=== PATIENT | female | born 1980 | race Caucasian/White ===

== ENCOUNTER → 2017-11-16 | Outpatient (CLI) | payer OTHER ==
[~2017-11-16] MED LIST: ACEDIPPM; ACET325 PO; ALBU90I INH; ALBU90OI; ALBU90OI INH; ALBU90OI61 INH; AMOCLA875 PO; AMOX500 PO; AZIT250 PO; Alprazolam0.5 MG PO; BCP'S; BUSP5 PO; CEPH500 PO; CIPR500 PO; CODGUAEL PO; CRUTCH USE; CRUTCH2 USE; CRUTCH3 USE; CRUTCH4 USE; CYCL10 PO; Clonazepam0.5 MG PO; DIPATR; DIPATR PO; DOXY100 PO; ESTR2; ESTRADIOL1 MG PO; FLUSAL2505 IH; GEODON; GUAPHELA PO; HYDACE10B PO; HYDACE5 PO; HYDGUAL120 PO; IBUP200 PO; IBUP600 PO; IBUP800; IBUP800 PO; LAVAP17G PO; LEVFLO500 PO; LITH300C; LITH300CA; LOPE2C PO; METCAR750 PO; MIRT30; NAPR500 PO; NAPR550 PO; Norflex100 MG; OLAN10; ONDA4ODT MM; OXYACE5T; OXYACE5T PO; PENVK500 PO; PRODEXEL PO; PROM25 PO; PROM6.25SY PO; Percocet 5-3251 EACH PO; Prilosec20 MG PO; RANI150; RXCODGUASY PO; RXCYCL10 PO; RXHYDACE PO; RXHYDGUAS PO; RXNAPNA550 PO; RXONDA4ODT MM; RXPROM25 PO; RXTRAM50 PO; SEROQUEL; SULTRIDS PO; SUMA25; TEMA15 PO; TOLTERODINE TART4 MG PO; TOPI100 PO; TRAM50 PO; TRIM250 PO; [UNRECOGNIZED DRUG - REMARK]
[2017-11-16 12:26] LABS: Influenza A Negative (NEGATIVE); Influenza B Negative (NEGATIVE)
== END ==
LOC: LAB EV 11:26
PROVIDERS: Emergency Medicine
DX: R06.2 Wheezing (principal)
CPT/HCPCS: 87804

== ENCOUNTER 2018-12-17 08:57 | Emergency (ER) | payer OTHER ==
[~2018-12-17] VITALS: Ht 177.8 cm; Wt 129.3 kg
[2018-12-17] MEDS ORDERED: ESTR2 PO (09:28)
[2018-12-17] MEDS ORDERED: CLON1 PO (09:28)
[2018-12-17] MEDS ORDERED: TOPI100 PO (09:28)
[2018-12-17] MEDS ORDERED: Norflex100 MG (09:28)
[2018-12-17] MEDS ORDERED: TOLT2ER PO (09:29)
[2018-12-17] MEDS ORDERED: PRED20 PO (10:17)
[2018-12-17] MEDS ORDERED: BENZ100A PO (10:17)
[2018-12-17] MEDS ORDERED: Cheratussin AC118 ML PO (10:17)
== END 2018-12-17 10:51 | disposition home or self-care (01) ==
LOC: ER 08:57
DX: R05 Cough (principal); R11.2 Nausea with vomiting, unspecified; Z88.8 Allergy status to other drugs, medicaments and biological substances; Z87.891 Personal history of nicotine dependence
CPT/HCPCS: 71046; 94640; 99283-25; J7512

== ENCOUNTER → 2019-10-28 | Outpatient (CLI) | payer OTHER ==
[~2019-10-28] MED LIST changes: +BENZ100A PO; +CLON1 PO; +Cheratussin AC118 ML PO; +ESTR2 PO; +PRED20 PO; +TOLT2ER PO
== END ==
LOC: LAB SHORT 11:35 → LAB EV 11:35
DX: R05 Cough (principal)
CPT/HCPCS: 87798

== ENCOUNTER → 2020-02-15 | Outpatient (CLI) | payer OTHER | END | disposition home or self-care (01) | LOC: LAB 12:00 → LAB SHORT 12:00 | DX: M54.5 Low back pain (principal) | CPT/HCPCS: 87086 ==

== ENCOUNTER 2020-11-22 07:39 | Day surgery (SDC) | payer OTHER ==
[~2020-11-22] VITALS: Ht 177.8 cm; Wt 136.8 kg
[~2020-11-22 07:39] MED LIST changes: +ALPR.5 PO; +CITA20 PO; +Norflex100 MG PO; +PRAZ2 PO
--- NOTE | 2020-11-22 09:17 | NUR ---
Ambulatory in Day Surgery History, Chart, Medications and Allergies reviewed before start of procedure. Lungs clear T/O to Auscultation. Pre-Op teaching done. Pt verbalizes understanding.
--- NOTE | 2020-11-22 10:39 | NUR ---
11/22/20 1039 Raleigh Barbosa BILATERAL ANNE BLOCKES DONE AFTER INDUCTION PER DR. BROWN.
--- NOTE | 2020-11-22 16:43 | NUR ---
SHIFT SUMMARY PT A&OX4, VSS, S/P HERNIA REPAIR, RUBENS CDI, ABD BINDER ON. PAIN TREATED PER ENAR. NICOTINE PATCH RIGHT SHOULDER. IVF @ 75 MLS/HR; ABX Q8. QUYNH PO, DENIES N&V. AMB SBA TO BRP. VOIDING WELL. WILL REPORT TO ONCOMING NOC PADMAJA.
--- NOTE | 2020-11-23 04:05 | NUR ---
SHIFT SUMMARY: POD 1 HERNIA REPAIR PATIENT IS ALERT AND ORIENTED X4 WHILE AWAKE. SHE HAS BEEN SLEEPING MAJORITY OF THE SHIFT. VS ARE WNL AND IS ON RA. PAIN IS CONTROLLED WITH TORADOL, PERCOCET, AND FENTANYL. SHE IS A SBA TO BATHROOM WITH FWW AND GAIT BELT. RUBENS DRESSING DOWN MIDLINE HAS SMALL DRIED BLOOD SPOTS BUT IS OTHERWISE INTACT AND COMPRESSED. SHE IS VOIDING, HAD A BM, AND TOLERATING PO INTAKE. SHE CALLS APPROPRIATELY. SHE IS CURRENTLY LAYING IN BED WITH EYES CLOSED WITH EVEN/EQUAL RESPIRATIONS. CALL LIGHT WITHIN REACH. THE PLAN IS TO POSSIBLY DISCHARGE HOME LATER TODAY IF APPROPRIATE.
[2020-11-23] MEDS ORDERED: OXYACE7.5T PO (09:45)
[2020-11-23] MEDS ORDERED: ONDA4ODT MM (09:45)
--- NOTE | 2020-11-23 11:02 | NUR ---
DISCHARGE SUMMARY PT A/O X4; PLEASANT AND COOPERATIVE WITH CARE. SLIGHTLY ANXIOUS BUT DOES NOT REPORT NEEDING ANYTHING FOR HER ANXIETY. EXPERIENCING PAIN IN HER ABD AND INCISION SITE AND MEDICATED X2 PER EMR ORDERS. RUBENS DRESSING CHANGED. A SMALL AMOUNT OF FRESH BLOOD NOTED ON THE DRESSING WHEN CHANGING. WENT OVER DISCHARGE INSTRUCTIONS WITH PATIENT AND SHE EXPRESSED UNDERSTANDING. ABD BINDER IN PLACE AT DISCHARGE. PT WENT HOME WITH SON.
== END 2020-11-23 10:58 | disposition home or self-care (01) ==
LOC: ORSCMMR 07:39 → ORD 09:30 → ORSCMMR 09:30 → SURS 13:02 → ORSCMMR 11-23 10:58
PROVIDERS: Surgery
PROC: 0WUF0JZ Supplement Abdominal Wall with Synthetic Substitute, Open Approach (ICD-10-PCS; principal; 2020-11-22 09:30)
DX: K43.2 Incisional hernia without obstruction or gangrene (principal); J44.9 Chronic obstructive pulmonary disease, unspecified; F17.210 Nicotine dependence, cigarettes, uncomplicated; K21.9 Gastro-esophageal reflux disease without esophagitis; E66.01 Morbid (severe) obesity due to excess calories; Z68.41 Body mass index [BMI] 40.0-44.9, adult; F31.9 Bipolar disorder, unspecified; Z79.899 Other long term (current) drug therapy
CPT/HCPCS: A9270; C1781; J0690; J1100; J1885; J2250; J2405; J2704; J3010; J7120

== ENCOUNTER 2020-12-05 18:48 | Emergency (ER) | payer OTHER ==
[~2020-12-05] VITALS: Ht 177.8 cm; Wt 136.1 kg
[~2020-12-05 18:48] MED LIST changes: +OXYACE7.5T PO
[2020-12-05 19:29] LABS: BASOPHILS ABSOLUTE AUTO 0.04 K/mm3 (0.00-0.23); BASOPHILS PERCENT AUTO 1 % (0-2); EOSINOPHILS ABSOLUTE AUTO 0.26 K/mm3 (0.00-0.68); EOSINOPHILS PERCENT AUTO 3 % (0-6); Hemoglobin 12.7 g/dL (11.5-16.0); IMMATURE GRAN ABSOLUTE AUTO 0.03 K/mm3 (0.00-0.10); IMMATURE GRAN PERCENT AUTO 0 % (0-1); LYMPHOCYTES ABSOLUTE AUTO 2.02 K/mm3 (0.84-5.20); LYMPHOCYTES PERCENT AUTO 25 % (21-46); MONOCYTES ABSOLUTE AUTO 0.66 K/mm3 (0.16-1.47); MONOCYTES PERCENT AUTO 8 % (4-13); Mean Corpuscular HGB 30.2 pg (26.0-34.0); Mean Corpuscular HGB Conc 33.4 g/dL (31.5-36.5); Mean Corpuscular Volume 91 fL (80-100); Mean Platelet Volume 8.8 fL (9.1-12.4); NEUTROPHILS ABSOLUTE AUTO 5.08 K/mm3 (1.96-9.15); NEUTROPHILS PERCENT AUTO 63 % (41-73); Platelet Count 263 K/mm3 (150-400); RDW Coefficient Variation 11.8 % (11.7-14.2); RDW Standard Deviation 38.9 fL (35.1-46.3); White Blood Cell Count 8.09 K/mm3 (4.00-11.30)
[2020-12-05 20:04] LABS: Alanine Aminotransfer (ALT/SGP 21 U/L (12-78); Albumin, Blood 3.7 g/dL (3.4-5.0); Alk Phos 88 U/L (50-136); Anion Gap 6 mmol/L (6-16); Aspartate Aminotrans (AST/SGOT 17 U/L (12-37); Bilirubin, Total 0.4 mg/dL (0.1-1.0); Blood Urea Nitrogen 19 mg/dL (8-24); Bun/Creatinine Ratio 25.5 (12.0-20.0); CO2, Blood 27 mmol/L (21-32); Calcium, Blood 9.4 mg/dL (8.5-10.1); Chloride, Blood 106 mmol/L (98-108); Creatinine, Blood 0.74 mg/dL (0.40-1.00); Globulin, Blood 3.7 g/dL (2.2-4.0); Glomerular Filtration Rate >60 (60-); Glucose, Blood 124 mg/dL (70-99); Potassium, Blood 3.9 mmol/L (3.5-5.5); Sodium, Blood 139 mmol/L (136-145); Total Protein, Blood 7.4 g/dL (6.4-8.2)
[2020-12-05] MEDS ORDERED: CEPH500 PO (23:10)
== END 2020-12-05 23:46 | disposition home or self-care (01) ==
LOC: ER 18:48
PROVIDERS: Emergency Medicine
DX: L03.311 Cellulitis of abdominal wall (principal); F17.200 Nicotine dependence, unspecified, uncomplicated; Z88.8 Allergy status to other drugs, medicaments and biological substances; Z79.899 Other long term (current) drug therapy
CPT/HCPCS: 36415; 74177; 80053; 83690; 85025; 96374; 99284-25; A9270; J1885; Q9967

== ENCOUNTER 2020-12-19 17:26 | Emergency (ER) | payer OTHER ==
[~2020-12-19] VITALS: Ht 177.8 cm; Wt 136.1 kg
[2020-12-19 18:06] LABS: Source, Urine Clean Catch
[2020-12-19 18:20] LABS: BASOPHILS ABSOLUTE AUTO 0.03 K/mm3 (0.00-0.23); BASOPHILS PERCENT AUTO 0 % (0-2); EOSINOPHILS ABSOLUTE AUTO 0.25 K/mm3 (0.00-0.68); EOSINOPHILS PERCENT AUTO 4 % (0-6); Hematocrit 35.8 % (33.0-51.0); IMMATURE GRAN ABSOLUTE AUTO 0.02 K/mm3 (0.00-0.10); IMMATURE GRAN PERCENT AUTO 0 % (0-1); LYMPHOCYTES ABSOLUTE AUTO 1.85 K/mm3 (0.84-5.20); LYMPHOCYTES PERCENT AUTO 26 % (21-46); MONOCYTES ABSOLUTE AUTO 0.93 K/mm3 (0.16-1.47); MONOCYTES PERCENT AUTO 13 % (4-13); Mean Corpuscular HGB 30.4 pg (26.0-34.0); Mean Corpuscular HGB Conc 33.5 g/dL (31.5-36.5); Mean Corpuscular Volume 91 fL (80-100); Mean Platelet Volume 8.9 fL (9.1-12.4); NEUTROPHILS ABSOLUTE AUTO 3.99 K/mm3 (1.96-9.15); NEUTROPHILS PERCENT AUTO 56 % (41-73); Platelet Count 254 K/mm3 (150-400); RDW Coefficient Variation 11.7 % (11.7-14.2); RDW Standard Deviation 38.8 fL (35.1-46.3); Red Blood Cell Count 3.95 M/mm3 (3.80-5.20); White Blood Cell Count 7.07 K/mm3 (4.00-11.30)
[2020-12-19 18:27] LABS: Alanine Aminotransfer (ALT/SGP 18 U/L (12-78); Albumin, Blood 3.3 g/dL (3.4-5.0); Albumin/Globulin Ratio 0.9 (0.8-1.8); Alk Phos 81 U/L (50-136); Anion Gap 3 mmol/L (6-16); Aspartate Aminotrans (AST/SGOT 16 U/L (12-37); Bilirubin, Total 0.4 mg/dL (0.1-1.0); Blood Urea Nitrogen 13 mg/dL (8-24); Bun/Creatinine Ratio 17.3 (12.0-20.0); CO2, Blood 27 mmol/L (21-32); Calcium, Blood 9.1 mg/dL (8.5-10.1); Chloride, Blood 109 mmol/L (98-108); Creatinine, Blood 0.75 mg/dL (0.40-1.00); Globulin, Blood 3.6 g/dL (2.2-4.0); Glomerular Filtration Rate >60 (60-); Glucose, Blood 101 mg/dL (70-99); Potassium, Blood 4.3 mmol/L (3.5-5.5); Sodium, Blood 139 mmol/L (136-145); Total Protein, Blood 6.9 g/dL (6.4-8.2)
[2020-12-19 18:35] LABS: Appearance, Urine Hazy (Clear); Bilirubin, Urine Neg (Neg); Blood, Urine Neg (Neg); Color, Urine Yellow (P-Yellow); Glucose Qualitative, Urine Neg (Neg); Ketones, Urine 1+ (Neg); Leukocyte Esterase, Urine Neg (Neg); Nitrite, Urine Neg (Neg); Protein, Urine Neg (Neg); Urobilinogen, Urine NORM (Normal)
[2020-12-19 19:03] LABS: Bacteria Few /hpf; Red Blood Cells, Urine 0-2 /hpf (0-2); Squamous Epithelial Cells Few /hpf (Few); White Blood Cells, Urine 0-2 /hpf (0-5)
[2020-12-19 19:04] LABS: Amorphous Heavy (0-Heavy)
[2020-12-19] MEDS ORDERED: Norco 5-325 Ta1 EACH PO (19:32)
== END 2020-12-19 19:42 | disposition home or self-care (01) ==
LOC: ER 17:26
PROVIDERS: Physician Assistant
DX: R10.9 Unspecified abdominal pain (principal); Z48.01 Encounter for change or removal of surgical wound dressing
CPT/HCPCS: 36415; 74177; 80053; 81001; 83690; 85025; 99283-25; Q9967

== ENCOUNTER 2021-01-23 10:16 | Emergency (ER) | payer OTHER ==
[~2021-01-23] VITALS: Ht 177.8 cm; Wt 136.1 kg
[~2021-01-23 10:16] MED LIST changes: +Norco 5-325 Ta1 EACH PO
[2021-01-23] MEDS ORDERED: Phentermine HCl15 MG (11:18)
[2021-01-23] MEDS ORDERED: DIVA125EC (11:18)
[2021-01-23] MEDS ORDERED: PRAMIPEXOLE0.125 M1 PO (11:20)
[2021-01-23] MEDS ORDERED: Norflex100 MG (11:20)
[2021-01-23 11:41] LABS: BASOPHILS ABSOLUTE AUTO 0.04 K/mm3 (0.00-0.23); BASOPHILS PERCENT AUTO 1 % (0-2); EOSINOPHILS PERCENT AUTO 1 % (0-6); Hematocrit 39.3 % (33.0-51.0); Hemoglobin 13.1 g/dL (11.5-16.0); IMMATURE GRAN ABSOLUTE AUTO 0.02 K/mm3 (0.00-0.10); IMMATURE GRAN PERCENT AUTO 0 % (0-1); LYMPHOCYTES ABSOLUTE AUTO 1.84 K/mm3 (0.84-5.20); LYMPHOCYTES PERCENT AUTO 25 % (21-46); MONOCYTES ABSOLUTE AUTO 0.72 K/mm3 (0.16-1.47); MONOCYTES PERCENT AUTO 10 % (4-13); Mean Corpuscular HGB 29.8 pg (26.0-34.0); Mean Corpuscular HGB Conc 33.3 g/dL (31.5-36.5); Mean Corpuscular Volume 90 fL (80-100); Mean Platelet Volume 8.6 fL (9.1-12.4); NEUTROPHILS ABSOLUTE AUTO 4.79 K/mm3 (1.96-9.15); NEUTROPHILS PERCENT AUTO 64 % (41-73); Platelet Count 256 K/mm3 (150-400); RDW Coefficient Variation 12.1 % (11.7-14.2); RDW Standard Deviation 39.5 fL (35.1-46.3); Red Blood Cell Count 4.39 M/mm3 (3.80-5.20); White Blood Cell Count 7.51 K/mm3 (4.00-11.30)
[2021-01-23 11:59] LABS: Alanine Aminotransfer (ALT/SGP 22 U/L (12-78); Albumin, Blood 3.7 g/dL (3.4-5.0); Albumin/Globulin Ratio 0.9 (0.8-1.8); Alk Phos 94 U/L (50-136); Anion Gap 6 mmol/L (6-16); Aspartate Aminotrans (AST/SGOT 15 U/L (12-37); Bilirubin, Total 0.4 mg/dL (0.1-1.0); Blood Urea Nitrogen 13 mg/dL (8-24); Bun/Creatinine Ratio 16.5 (12.0-20.0); CO2, Blood 27 mmol/L (21-32); Calcium, Blood 9.2 mg/dL (8.5-10.1); Chloride, Blood 103 mmol/L (98-108); Creatinine, Blood 0.79 mg/dL (0.40-1.00); Globulin, Blood 4.1 g/dL (2.2-4.0); Glomerular Filtration Rate >60 (60-); Glucose, Blood 86 mg/dL (70-99); Potassium, Blood 3.8 mmol/L (3.5-5.5); Sodium, Blood 136 mmol/L (136-145); Total Protein, Blood 7.8 g/dL (6.4-8.2)
[2021-01-23] MEDS ORDERED: CEPHALEXIN500 M2 PO (13:18)
== END 2021-01-23 13:35 | disposition home or self-care (01) ==
LOC: ER 10:16
PROVIDERS: Emergency Medicine
DX: L03.311 Cellulitis of abdominal wall (principal); F17.210 Nicotine dependence, cigarettes, uncomplicated; Z88.8 Allergy status to other drugs, medicaments and biological substances; Z79.899 Other long term (current) drug therapy
CPT/HCPCS: 36415; 80053; 83690; 85025; 99282; A9270

== ENCOUNTER 2021-06-21 10:18 | Day surgery (SDC) | payer OTHER ==
[~2021-06-21] VITALS: Ht 177.8 cm; Wt 138.1 kg
[~2021-06-21 10:18] MED LIST changes: +CEPHALEXIN500 M2 PO; +DIVA125EC; +PRAMIPEXOLE0.125 M1 PO; +Phentermine HCl15 MG
--- NOTE | 2021-06-21 11:03 | NUR ---
06/21/21 Manuela3 Dina Jay 1 try right hand blew missed the first one same hand
--- NOTE | 2021-06-21 16:07 | NUR ---
06/21/21 1607 Gregoria Rivas LATE ENTRY---THIS PATIENT WAS VERY DIFFICULT TO SEDATE AND REQUIRED CONTINUED BOLUS OF PROPOFOL TO MAINTAIN SEDATION AND THIS WAS APPROVED THROUGHOUT THIS PROCEDURE BY DR NOLAN. THIS PATIENT SHOULD HAVE MAC SEDATION FOR ANY FURTHER ENDOSCOPIC PROCEDURES
== END 2021-06-21 13:00 | disposition home or self-care (01) ==
LOC: ORSCSDS 10:18
PROVIDERS: Internal Medicine Gastroenterology
PROC: 0DBE8ZX Excision of Large Intestine, Via Natural or Artificial Opening Endoscopic, Diagnostic (ICD-10-PCS; principal; 2021-06-21 12:00)
PROC: 0DB98ZX Excision of Duodenum, Via Natural or Artificial Opening Endoscopic, Diagnostic (ICD-10-PCS; principal; 2021-06-21 12:00)
PROC: 0DB78ZX Excision of Stomach, Pylorus, Via Natural or Artificial Opening Endoscopic, Diagnostic (ICD-10-PCS; principal; 2021-06-21 12:00)
DX: R19.7 Diarrhea, unspecified (principal); R11.2 Nausea with vomiting, unspecified; K29.70 Gastritis, unspecified, without bleeding; K44.9 Diaphragmatic hernia without obstruction or gangrene; B19.20 Unspecified viral hepatitis C without hepatic coma; F17.210 Nicotine dependence, cigarettes, uncomplicated; J45.909 Unspecified asthma, uncomplicated; K76.0 Fatty (change of) liver, not elsewhere classified; Z79.899 Other long term (current) drug therapy
CPT/HCPCS: 88305; 88342; J2250; J2704; J7120

== ENCOUNTER 2021-10-26 00:54 | Emergency (ER) | payer OTHER ==
[~2021-10-26] VITALS: Ht 162.6 cm; Wt 113.4 kg
[2021-10-26 01:18] LABS: BASOPHILS ABSOLUTE AUTO 0.03 K/mm3 (0.00-0.23); BASOPHILS PERCENT AUTO 0 % (0-2); EOSINOPHILS ABSOLUTE AUTO 0.12 K/mm3 (0.00-0.68); EOSINOPHILS PERCENT AUTO 2 % (0-6); Hematocrit 41.4 % (33.0-51.0); Hemoglobin 13.9 g/dL (11.5-16.0); IMMATURE GRAN ABSOLUTE AUTO 0.03 K/mm3 (0.00-0.10); IMMATURE GRAN PERCENT AUTO 0 % (0-1); LYMPHOCYTES ABSOLUTE AUTO 2.15 K/mm3 (0.84-5.20); LYMPHOCYTES PERCENT AUTO 32 % (21-46); MONOCYTES ABSOLUTE AUTO 0.53 K/mm3 (0.16-1.47); MONOCYTES PERCENT AUTO 8 % (4-13); Mean Corpuscular HGB 30.2 pg (26.0-34.0); Mean Corpuscular HGB Conc 33.6 g/dL (31.5-36.5); Mean Corpuscular Volume 90 fL (80-100); Mean Platelet Volume 8.9 fL (9.1-12.4); NEUTROPHILS ABSOLUTE AUTO 3.85 K/mm3 (1.96-9.15); NEUTROPHILS PERCENT AUTO 58 % (41-73); Platelet Count 252 K/mm3 (150-400); RDW Coefficient Variation 11.9 % (11.7-14.2); RDW Standard Deviation 39.1 fL (35.1-46.3); Red Blood Cell Count 4.61 M/mm3 (3.80-5.20); White Blood Cell Count 6.71 K/mm3 (4.00-11.30)
[2021-10-26 01:31] LABS: Alanine Aminotransfer (ALT/SGP 30 U/L (12-78); Albumin, Blood 3.9 g/dL (3.4-5.0); Albumin/Globulin Ratio 1.1 (0.8-1.8); Alk Phos 89 U/L (50-136); Anion Gap 8 mmol/L (6-16); Aspartate Aminotrans (AST/SGOT 19 U/L (12-37); Bilirubin, Total 0.3 mg/dL (0.1-1.0); Blood Urea Nitrogen 11 mg/dL (8-24); Bun/Creatinine Ratio 16.9 (12.0-20.0); CO2, Blood 28 mmol/L (21-32); Calcium, Blood 8.9 mg/dL (8.5-10.1); Chloride, Blood 106 mmol/L (98-108); Creatinine, Blood 0.65 mg/dL (0.40-1.00); Ethanol (Alcohol), Blood, Med 185 mg/dL; Globulin, Blood 3.7 g/dL (2.2-4.0); Glomerular Filtration Rate >60 (60-); Glucose, Blood 138 mg/dL (70-99); Potassium, Blood 3.5 mmol/L (3.5-5.5); Sodium, Blood 142 mmol/L (136-145); Total Protein, Blood 7.6 g/dL (6.4-8.2)
[2021-10-26 03:08] LABS: U Amphetamine Screen Not Detected; U Barbituate Screen Not Detected; U Benzodiazapine Screen Not Detected; U Buprenorphine Screen Not Detected; U Cannabinoids Screen Not Detected; U Cocaine Screen Not Detected; U Methadone Screen Not Detected; U Methamphetamine Screen Not Detected; U Opiates Screen Not Detected; U Oxycodone Screen Not Detected; U Phencyclidine Screen Not Detected; U Propoxyphene Screen Not Detected
[2021-10-26 06:12] LABS: Influenza A, PCR NEGATIVE (NEGATIVE); Influenza B, PCR NEGATIVE (NEGATIVE); Resp Syncytial Virus, PCR NEGATIVE (NEGATIVE); SARS-Cov-2 (COVID-19) PCR, MMC NEGATIVE (NEGATIVE)
== END 2021-10-26 10:15 | disposition other institution (70) ==
LOC: ER 00:54 → PCU 06:42
PROVIDERS: Student in an Organized Health Care Education/Training Program
DX: F10.129 Alcohol abuse with intoxication, unspecified (principal); R51.9 Headache, unspecified; H57.11 Ocular pain, right eye; F17.210 Nicotine dependence, cigarettes, uncomplicated; Y90.9 Presence of alcohol in blood, level not specified; Z20.822 Contact with and (suspected) exposure to COVID-19; Z79.899 Other long term (current) drug therapy; Z88.8 Allergy status to other drugs, medicaments and biological substances
CPT/HCPCS: 0241U; 70450; 70496; 70498; 71045; 80053; 84145; 85025; 85379; 85651; 93005; 93010; 96365-59; 96366-59; 96375-59; 99285-25; A9270; G0480; J0456; J0696; J1790; J1885; J7050; J7120; P9612; Q9967

== ENCOUNTER 2022-08-02 08:03 | Emergency (ER) | payer OTHER ==
[~2022-08-02] VITALS: Ht 177.8 cm; Wt 124.7 kg
[~2022-08-02 08:03] MED LIST changes: +ALPRAZOLAM0.5 M1 PO; +CITALOPRAM HBR20 M8 PO; +CLONAZEPAM1 MG PO
[2022-08-02] MEDS ORDERED: Robaxin750 MG PO (09:42)
[2022-08-02] MEDS ORDERED: LIDO700A20 TOP (09:42)
[2022-08-02] MEDS ORDERED: IBUP800 PO (09:42)
== END 2022-08-02 09:52 | disposition home or self-care (01) ==
LOC: ER 08:03
DX: M54.9 Dorsalgia, unspecified (principal); W10.9XXA Fall (on) (from) unspecified stairs and steps, initial encounter; Z88.5 Allergy status to narcotic agent; Z79.899 Other long term (current) drug therapy; F17.210 Nicotine dependence, cigarettes, uncomplicated
CPT/HCPCS: 72100; A9270

== ENCOUNTER 2022-12-26 17:45 | Emergency (ER) | payer OTHER ==
[~2022-12-26] VITALS: Ht 177.8 cm; Wt 122.5 kg
[~2022-12-26 17:45] MED LIST changes: +LIDO700A20 TOP; +Robaxin750 MG PO
[2022-12-26 17:51] VITALS: BP 149/90
[2022-12-26 18:05] LABS: BASOPHILS ABSOLUTE AUTO 0.05 K/mm3 (0.00-0.23); BASOPHILS PERCENT AUTO 1 % (0-2); EOSINOPHILS ABSOLUTE AUTO 0.12 K/mm3 (0.00-0.68); EOSINOPHILS PERCENT AUTO 2 % (0-6); Hematocrit 40.4 % (33.0-51.0); Hemoglobin 13.6 g/dL (11.5-16.0); IMMATURE GRAN ABSOLUTE AUTO 0.02 K/mm3 (0.00-0.10); IMMATURE GRAN PERCENT AUTO 0 % (0-1); LYMPHOCYTES ABSOLUTE AUTO 2.47 K/mm3 (0.84-5.20); LYMPHOCYTES PERCENT AUTO 32 % (21-46); MONOCYTES ABSOLUTE AUTO 0.65 K/mm3 (0.16-1.47); MONOCYTES PERCENT AUTO 8 % (4-13); Mean Corpuscular HGB 28.2 pg (26.0-34.0); Mean Corpuscular HGB Conc 33.7 g/dL (31.5-36.5); Mean Corpuscular Volume 84 fL (80-100); Mean Platelet Volume 8.7 fL (9.1-12.4); NEUTROPHILS ABSOLUTE AUTO 4.44 K/mm3 (1.96-9.15); NEUTROPHILS PERCENT AUTO 57 % (41-73); Platelet Count 311 K/mm3 (150-400); RDW Coefficient Variation 13.2 % (11.7-14.2); RDW Standard Deviation 40.4 fL (35.1-46.3); Red Blood Cell Count 4.83 M/mm3 (3.80-5.20); White Blood Cell Count 7.75 K/mm3 (4.00-11.30)
[2022-12-26 18:30] LABS: Source, Urine Clean Catch
[2022-12-26 18:31] LABS: Albumin, Blood 3.8 g/dL (3.4-5.0); Bilirubin, Total 0.4 mg/dL (0.1-1.0); Bun/Creatinine Ratio 13.5 (12.0-20.0); Creatinine, Blood 0.74 mg/dL (0.40-1.00); Globulin, Blood 3.7 g/dL (2.2-4.0); Potassium, Blood 3.7 mmol/L (3.5-5.5); Total Protein, Blood 7.5 g/dL (6.4-8.2)
[2022-12-26 18:33] LABS: Appearance, Urine Clear (Clear); Bilirubin, Urine Neg (Neg); Blood, Urine Neg (Neg); Color, Urine Yellow (P-Yellow); Glucose Qualitative, Urine Neg (Neg); Ketones, Urine Neg (Neg); Leukocyte Esterase, Urine Neg (Neg); Nitrite, Urine Neg (Neg); Protein, Urine Neg (Neg); Specific Gravity, Urine 1.015 (1.003-1.022); Urobilinogen, Urine NORM (Normal)
== END 2022-12-26 19:01 | disposition left against medical advice (07) ==
LOC: ER 17:45
PROVIDERS: Physician Assistant
DX: Z53.21 Procedure and treatment not carried out due to patient leaving prior to being seen by health care provider (principal); F17.210 Nicotine dependence, cigarettes, uncomplicated
CPT/HCPCS: 36415; 74176; 80053; 81003; 83690; 85025

== ENCOUNTER 2023-02-08 13:59 | Emergency (ER) | payer OTHER ==
[~2023-02-08] VITALS: Ht 177.8 cm; Wt 122.5 kg
[2023-02-08 14:30] VITALS: BP 133/85
[2023-02-08 14:59] LABS: BASOPHILS ABSOLUTE AUTO 0.04 K/mm3 (0.00-0.23); BASOPHILS PERCENT AUTO 0 % (0-2); EOSINOPHILS ABSOLUTE AUTO 0.07 K/mm3 (0.00-0.68); EOSINOPHILS PERCENT AUTO 1 % (0-6); Hematocrit 39.1 % (33.0-51.0); Hemoglobin 13.3 g/dL (11.5-16.0); IMMATURE GRAN ABSOLUTE AUTO 0.04 K/mm3 (0.00-0.10); IMMATURE GRAN PERCENT AUTO 0 % (0-1); LYMPHOCYTES ABSOLUTE AUTO 1.13 K/mm3 (0.84-5.20); LYMPHOCYTES PERCENT AUTO 12 % (21-46); MONOCYTES ABSOLUTE AUTO 0.71 K/mm3 (0.16-1.47); MONOCYTES PERCENT AUTO 8 % (4-13); Mean Corpuscular HGB 28.7 pg (26.0-34.0); Mean Corpuscular Volume 84 fL (80-100); Mean Platelet Volume 9.1 fL (9.1-12.4); NEUTROPHILS ABSOLUTE AUTO 7.28 K/mm3 (1.96-9.15); NEUTROPHILS PERCENT AUTO 79 % (41-73); Platelet Count 251 K/mm3 (150-400); RDW Coefficient Variation 12.7 % (11.7-14.2); RDW Standard Deviation 38.7 fL (35.1-46.3); Red Blood Cell Count 4.64 M/mm3 (3.80-5.20); White Blood Cell Count 9.27 K/mm3 (4.00-11.30)
[2023-02-08 15:15] LABS: Albumin, Blood 3.6 g/dL (3.4-5.0); Bilirubin, Total 0.5 mg/dL (0.1-1.0); Bun/Creatinine Ratio 15.6 (12.0-20.0); Calcium, Blood 8.7 mg/dL (8.5-10.1); Creatinine, Blood 0.71 mg/dL (0.40-1.00); Globulin, Blood 3.7 g/dL (2.2-4.0); Potassium, Blood 4.1 mmol/L (3.5-5.5); Total Protein, Blood 7.3 g/dL (6.4-8.2)
== END 2023-02-08 16:16 | disposition left against medical advice (07) ==
LOC: ER 13:59
PROVIDERS: Physician Assistant
DX: R42 Dizziness and giddiness (principal); R10.9 Unspecified abdominal pain; R19.7 Diarrhea, unspecified; Z53.21 Procedure and treatment not carried out due to patient leaving prior to being seen by health care provider; B18.2 Chronic viral hepatitis C; F17.210 Nicotine dependence, cigarettes, uncomplicated; Z88.8 Allergy status to other drugs, medicaments and biological substances
CPT/HCPCS: 80053; 82947; 85025; 93005; 93010; 99282-25

== ENCOUNTER 2023-09-23 11:51 | Emergency (ER) | payer OTHER ==
[~2023-09-23] VITALS: Ht 177.8 cm; Wt 136.1 kg
[2023-09-23 13:03] LABS: BASOPHILS ABSOLUTE AUTO 0.04 K/mm3 (0.00-0.23); BASOPHILS PERCENT AUTO 0 % (0-2); EOSINOPHILS ABSOLUTE AUTO 0.11 K/mm3 (0.00-0.68); EOSINOPHILS PERCENT AUTO 1 % (0-6); Hematocrit 44.3 % (33.0-51.0); Hemoglobin 14.7 g/dL (11.5-16.0); IMMATURE GRAN ABSOLUTE AUTO 0.04 K/mm3 (0.00-0.10); IMMATURE GRAN PERCENT AUTO 0 % (0-1); LYMPHOCYTES ABSOLUTE AUTO 1.77 K/mm3 (0.84-5.20); LYMPHOCYTES PERCENT AUTO 18 % (21-46); MONOCYTES ABSOLUTE AUTO 0.68 K/mm3 (0.16-1.47); MONOCYTES PERCENT AUTO 7 % (4-13); Mean Corpuscular HGB 28.3 pg (26.0-34.0); Mean Corpuscular HGB Conc 33.2 g/dL (31.5-36.5); Mean Corpuscular Volume 85 fL (80-100); Mean Platelet Volume 8.9 fL (9.1-12.4); NEUTROPHILS ABSOLUTE AUTO 7.39 K/mm3 (1.96-9.15); NEUTROPHILS PERCENT AUTO 74 % (41-73); Platelet Count 340 K/mm3 (150-400); RDW Coefficient Variation 12.4 % (11.7-14.2); RDW Standard Deviation 38.6 fL (35.1-46.3); Red Blood Cell Count 5.19 M/mm3 (3.80-5.20); White Blood Cell Count 10.03 K/mm3 (4.00-11.30)
[2023-09-23 13:23] LABS: Albumin, Blood 3.9 g/dL (3.4-5.0); Albumin/Globulin Ratio 0.9 (0.8-1.8); Bilirubin, Total 0.4 mg/dL (0.1-1.0); Bun/Creatinine Ratio 15.4 (12.0-20.0); Calcium, Blood 9.3 mg/dL (8.5-10.1); Creatinine, Blood 0.85 mg/dL (0.40-1.00); Globulin, Blood 4.2 g/dL (2.2-4.0); Potassium, Blood 3.9 mmol/L (3.5-5.5); Total Protein, Blood 8.1 g/dL (6.4-8.2)
[2023-09-23] MEDS ORDERED: ACYC800 PO (15:07)
[2023-09-23] MEDS ORDERED: METPRE4DP PO (15:07)
[2023-09-23] MEDS ORDERED: OXYC5 PO (15:12)
[2023-09-23 15:28] VITALS: BP 114/65
== END 2023-09-23 15:30 | disposition home or self-care (01) ==
LOC: ER 11:51
PROVIDERS: Student in an Organized Health Care Education/Training Program
DX: B02.22 Postherpetic trigeminal neuralgia (principal); Z87.891 Personal history of nicotine dependence
CPT/HCPCS: 70450; 80053; 85025; 99284-25; A9270; J7512

== ENCOUNTER 2023-12-30 13:28 | Emergency (ER) | payer OTHER ==
[~2023-12-30] VITALS: Ht 177.8 cm; Wt 136.1 kg
[~2023-12-30 13:28] MED LIST changes: +ACYC800 PO; +METPRE4DP PO; +OXYC5 PO
[2023-12-30 13:51] VITALS: BP 141/95
[2023-12-30 14:19] LABS: BASOPHILS ABSOLUTE AUTO 0.04 K/mm3 (0.00-0.23); BASOPHILS PERCENT AUTO 1 % (0-2); EOSINOPHILS PERCENT AUTO 1 % (0-6); Hematocrit 40.1 % (33.0-51.0); Hemoglobin 13.3 g/dL (11.5-16.0); IMMATURE GRAN ABSOLUTE AUTO 0.03 K/mm3 (0.00-0.10); IMMATURE GRAN PERCENT AUTO 0 % (0-1); LYMPHOCYTES ABSOLUTE AUTO 1.54 K/mm3 (0.84-5.20); LYMPHOCYTES PERCENT AUTO 21 % (21-46); MONOCYTES ABSOLUTE AUTO 0.59 K/mm3 (0.16-1.47); MONOCYTES PERCENT AUTO 8 % (4-13); Mean Corpuscular HGB Conc 33.2 g/dL (31.5-36.5); Mean Corpuscular Volume 87 fL (80-100); Mean Platelet Volume 9.1 fL (9.1-12.4); NEUTROPHILS ABSOLUTE AUTO 4.99 K/mm3 (1.96-9.15); NEUTROPHILS PERCENT AUTO 69 % (41-73); Platelet Count 257 K/mm3 (150-400); RDW Standard Deviation 41.4 fL (35.1-46.3); Red Blood Cell Count 4.59 M/mm3 (3.80-5.20); White Blood Cell Count 7.29 K/mm3 (4.00-11.30)
[2023-12-30 14:31] LABS: Source, Urine Clean Catch
[2023-12-30 14:37] LABS: Appearance, Urine Hazy (Clear); Bilirubin, Urine Neg (Neg); Blood, Urine 1+ (Neg); Glucose Qualitative, Urine Neg (Neg); Ketones, Urine Neg (Neg); Leukocyte Esterase, Urine 2+ (Neg); Nitrite, Urine Neg (Neg); Protein, Urine Neg (Neg); Urobilinogen, Urine NORM (Normal)
[2023-12-30 14:48] LABS: Color, Urine Pale Yellow (P-Yellow)
[2023-12-30 14:50] LABS: Bacteria Many /hpf; Squamous Epithelial Cells Many /hpf (Few)
[2023-12-30 14:51] LABS: Transitional Epithelial Cells Rare /hpf (0-Rare)
[2023-12-30 15:13] LABS: Albumin, Blood 3.7 g/dL (3.4-5.0); Bilirubin, Total 0.3 mg/dL (0.1-1.0); Bun/Creatinine Ratio 17.1 (12.0-20.0); Calcium, Blood 9.1 mg/dL (8.5-10.1); Creatinine, Blood 0.64 mg/dL (0.40-1.00); Globulin, Blood 3.6 g/dL (2.2-4.0); Potassium, Blood 4.3 mmol/L (3.5-5.5); Total Protein, Blood 7.3 g/dL (6.4-8.2)
[2023-12-30] MEDS ORDERED: Cephalexin Monohydrate 500 MG Cap PO ONE (16:30)
[2023-12-30] MEDS ORDERED: CEPH500 PO (16:33)
== END 2023-12-30 16:56 | disposition home or self-care (01) ==
LOC: ER 13:28
PROVIDERS: Physician Assistant
DX: N39.0 Urinary tract infection, site not specified (principal); Z88.8 Allergy status to other drugs, medicaments and biological substances; Z79.899 Other long term (current) drug therapy; F17.210 Nicotine dependence, cigarettes, uncomplicated
CPT/HCPCS: 51702; 51798; 80053; 81001; 83690; 85025; 87086; 99284; A9270

== ENCOUNTER 2024-08-21 11:44 | Emergency (ER) | payer OTHER ==
[~2024-08-21] VITALS: Ht 177.8 cm; Wt 136.1 kg
[2024-08-21 12:05] VITALS: BP 159/97
[2024-08-21] MEDS ORDERED: Ketorolac Tromethamine 15mg Vial IM ONE (12:45)
[2024-08-21] MEDS ORDERED: Methocarbamol 500 MG Tab PO ONE (12:45)
[2024-08-21] MEDS ORDERED: Robaxin750 MG PO (12:59)
== END 2024-08-21 13:04 | disposition home or self-care (01) ==
LOC: ER 11:44
DX: M54.50 Low back pain, unspecified (principal); F17.210 Nicotine dependence, cigarettes, uncomplicated; Z79.899 Other long term (current) drug therapy
CPT/HCPCS: 96372; 99283-25; A9270; J1885

== ENCOUNTER 2024-11-25 08:31 | Emergency (ER) | payer OTHER ==
[~2024-11-25] VITALS: Ht 177.8 cm; Wt 142.9 kg
[2024-11-25 09:00] VITALS: BP 170/116
[2024-11-25] MEDS ORDERED: Ketorolac Tromethamine 30mg Vial IM ONE (09:10)
[2024-11-25] MEDS ORDERED: Triamcinolone Inj Susp 40 MG / ML 1ML Vial INTERA ONE (10:25)
[2024-11-25] MEDS ORDERED: IBUP800 PO (11:16)
== END 2024-11-25 11:33 | disposition home or self-care (01) ==
LOC: ER 08:31
DX: M75.42 Impingement syndrome of left shoulder (principal); Z79.899 Other long term (current) drug therapy; Z87.891 Personal history of nicotine dependence
CPT/HCPCS: 20610; 73030; 93005; 93010; 96372-59; 99283-25; J1885; J3301

== ENCOUNTER 2024-12-05 19:49 | Inpatient (IN) | payer OTHER ==
[~2024-12-05] VITALS: Ht 177.8 cm; Wt 147.6 kg
[2024-12-05] MEDS ORDERED: Benzonatate 100 MG Cap PO ONE (20:40)
[2024-12-05] MEDS ORDERED: PredniSONE 20 MG Tab PO ONE (20:40)
[2024-12-05] MEDS ORDERED: Albuterol 2.5 MG/3 ML VIAL INH SCH (20:40)
[2024-12-05 20:46] LABS: Influenza A, PCR NEGATIVE (NEGATIVE); Influenza B, PCR NEGATIVE (NEGATIVE); Resp Syncytial Virus, PCR NEGATIVE (NEGATIVE); SARS-Cov-2 (COVID-19) PCR, MMC NEGATIVE (NEGATIVE)
[2024-12-05] MEDS ORDERED: Acetaminophen 500 MG Tab PO ONE (21:45)
[2024-12-05] MEDS ORDERED: Ibuprofen 600 MG Tab PO ONE (21:45)
[2024-12-05] MEDS ORDERED: Doxycycline Hyclate 100 MG TAB PO ONE (21:45)
[2024-12-05] MEDS ORDERED: Amoxicillin/Clavulanate K 875 MG Tab PO ONE (21:45)
[2024-12-05] MEDS ORDERED: CefTRIAXone Sodium 1,000 MG in NS 100 ML IV ONE (21:50)
[2024-12-05] MEDS ORDERED: Doxycycline Hyclate 100 MG in Dextrose 5% 250 ML IV ONE (21:50)
[2024-12-05 22:30] LABS: Bun/Creatinine Ratio 18.7 (12.0-20.0); Calcium, Blood 8.6 mg/dL (8.5-10.1); Creatinine, Blood 0.7 mg/dL (0.40-1.00); Potassium, Blood 3.2 mmol/L (3.5-5.5)
[2024-12-05 22:33] LABS: BASOPHILS ABSOLUTE AUTO 0.03 K/mm3 (0.00-0.23); BASOPHILS PERCENT AUTO 0 % (0-2); EOSINOPHILS ABSOLUTE AUTO 0.03 K/mm3 (0.00-0.68); EOSINOPHILS PERCENT AUTO 0 % (0-6); Hematocrit 40.7 % (33.0-51.0); Hemoglobin 13.5 g/dL (11.5-16.0); IMMATURE GRAN ABSOLUTE AUTO 0.03 K/mm3 (0.00-0.10); IMMATURE GRAN PERCENT AUTO 0 % (0-1); LYMPHOCYTES ABSOLUTE AUTO 2.43 K/mm3 (0.84-5.20); LYMPHOCYTES PERCENT AUTO 33 % (21-46); MONOCYTES PERCENT AUTO 4 % (4-13); Mean Corpuscular HGB 28.4 pg (26.0-34.0); Mean Corpuscular HGB Conc 33.2 g/dL (31.5-36.5); Mean Corpuscular Volume 86 fL (80-100); Mean Platelet Volume 8.4 fL (9.1-12.4); NEUTROPHILS ABSOLUTE AUTO 4.58 K/mm3 (1.96-9.15); NEUTROPHILS PERCENT AUTO 62 % (41-73); Platelet Count 241 K/mm3 (150-400); RDW Coefficient Variation 12.4 % (11.7-14.2); RDW Standard Deviation 38.7 fL (35.1-46.3); Red Blood Cell Count 4.76 M/mm3 (3.80-5.20)
[2024-12-05] MEDS ORDERED: Ondansetron HCl 2 MG / ML 2ML Vial IV PRN (22:40)
[2024-12-05] MEDS ORDERED: Ipratropium/Albuterol SulF 2.5-0.5MG/3 ML Amp INH PRN (22:40)
[2024-12-05] MEDS ORDERED: MethylPREDNISolone Sod Succ 125 MG Vial IV SCH (23:00)
[2024-12-05] MEDS ORDERED: Enoxaparin 40 MG/0.4 ML SYR SC SCH (23:00)
[2024-12-05] MEDS ORDERED: Azithromycin 500 MG in NS 250 ML IV SCH (23:11)
[2024-12-05] MEDS ORDERED: Mag Sulfate 1 GM/D5% 100ML 100 ML IV STA (23:11)
[2024-12-05] MEDS ORDERED: Potassium Chloride 40 MEQ in NS 250 ML IV ONE (23:15)
[2024-12-05] MEDS ORDERED: Celexa20 MG PO (23:38)
[2024-12-05] MEDS ORDERED: Orphenadrine C100 MG PO (23:39)
[2024-12-05] MEDS ORDERED: PRAM.125 PO (23:40)
[2024-12-05] MEDS ORDERED: ABILIFY MYCITE PO (23:40)
[2024-12-06 00:17] VITALS: BP 131/98
--- NOTE | 2024-12-06 00:41 | NUR ---
ADMIT NOTE 44 YR OLD FEMALE ADMITTED TO FLOOR FROM THE ED WITH DX OF ACUTE BRONCHITIS. ALERT AND ORIENTED. UP AD ONI. LUNG SOUNDS CRACKLES AND DIMINISHED. RT GAVE TREATMENT. IV ANTIBIOTICS INFUSING. ORIENTED TO USE OF CALL LIGHT AND BED CONTROL. CALL LIGHT IN REACH. RAILS UP X 2. WILL MONITOR. VSS. ON ROOM AIR.
[2024-12-06] MEDS ORDERED: Promethazine HCl 25 MG Tab PO PRN (01:20)
[2024-12-06] MEDS ORDERED: HYDROcodone 5-APAP 325 TAB PO ONE (01:20)
[2024-12-06] MEDS ORDERED: Guaifenesin/Dextromethorphan Syrup 5 ML UDC PO PRN (01:50)
[2024-12-06] MEDS ORDERED: NS 250 ML IV PRN (02:05)
--- NOTE | 2024-12-06 03:24 | NUR ---
[employer] SUMMARY VSS. WAS ADMITTED TO FLOOR FROM THE ED EARLIER IN THE SHIFT WITH DX OF ACUTE BRONCHITIS. LUNG SOUNDS NOTED CRACKES AND DIMINISHED PER AUSCULTATON. RT GAVE TREATMENT AND HAS BEEN RECEIVING IV ANTIBIOTICS, ETC., SEE MAR FOR DETAILS. HAS BEEN RESTING QUIETLY WITH OCCASIONAL INTERRUPTIONS. ABLE TO REPOSITION SELF IN BED WITHOU ASSIST FOR COMFORT. CALL LIGHT IN REACH, RAILS UP X 2 AND BED IN LOW POSITION FOR SAFETY. WILL CONT TO MONITOR
[2024-12-06 03:52] VITALS: BP 158/96
[2024-12-06 05:29] LABS: BASOPHILS ABSOLUTE AUTO 0.02 K/mm3 (0.00-0.23); BASOPHILS PERCENT AUTO 0 % (0-2); EOSINOPHILS PERCENT AUTO 0 % (0-6); Hematocrit 41.5 % (33.0-51.0); Hemoglobin 13.9 g/dL (11.5-16.0); Mean Corpuscular HGB Conc 33.5 g/dL (31.5-36.5); Mean Corpuscular Volume 87 fL (80-100); Mean Platelet Volume 8.7 fL (9.1-12.4); Platelet Count 289 K/mm3 (150-400); RDW Coefficient Variation 12.5 % (11.7-14.2); RDW Standard Deviation 39.2 fL (35.1-46.3); White Blood Cell Count 10.26 K/mm3 (4.00-11.30)
[2024-12-06 05:36] LABS: IMMATURE GRAN ABSOLUTE AUTO 0.08 K/mm3 (0.00-0.10); IMMATURE GRAN PERCENT AUTO 1 % (0-1); LYMPHOCYTES ABSOLUTE AUTO 0.61 K/mm3 (0.84-5.20); LYMPHOCYTES PERCENT AUTO 6 % (21-46); MONOCYTES ABSOLUTE AUTO 0.07 K/mm3 (0.16-1.47); MONOCYTES PERCENT AUTO 1 % (4-13); NEUTROPHILS ABSOLUTE AUTO 9.48 K/mm3 (1.96-9.15); NEUTROPHILS PERCENT AUTO 92 % (41-73)
[2024-12-06 06:00] LABS: Albumin, Blood 3.9 g/dL (3.4-5.0); Bilirubin, Total 0.2 mg/dL (0.1-1.0); Bun/Creatinine Ratio 16.9 (12.0-20.0); Calcium, Blood 8.7 mg/dL (8.5-10.1); Creatinine, Blood 0.65 mg/dL (0.40-1.00); Globulin, Blood 4.1 g/dL (2.2-4.0)
[2024-12-06 07:59] VITALS: BP 141/93
[2024-12-06] MEDS ORDERED: ARIPiprazole 5 MG Tab PO SCH (09:00)
[2024-12-06] MEDS ORDERED: HYDROcodone 5-APAP 325 TAB PO SCH (09:00)
[2024-12-06] MEDS ORDERED: Cyclobenzaprine HCl 10 MG Tab PO SCH (09:00)
[2024-12-06] MEDS ORDERED: Citalopram Hydrobromide 20 MG Tab PO SCH (09:00)
[2024-12-06] MEDS ORDERED: HYDR1TAB94 (09:43)
[2024-12-06 12:13] VITALS: BP 150/86
--- NOTE | 2024-12-06 13:11 | NUR ---
PATIENT TACHY ON TELE; NOTIFIED DR. GUTIERREZ OF ELEVATED HEART RATE.
[2024-12-06] MEDS ORDERED: AZIT250 PO (15:27)
[2024-12-06] MEDS ORDERED: ALBU8HFA2 INH (15:27)
[2024-12-06] MEDS ORDERED: FLUTICASONE-SA1 EAC2 INH (15:28)
[2024-12-06] MEDS ORDERED: Prednisone10 MG PO (15:29)
--- NOTE | 2024-12-06 15:42 | NUR ---
4516 PT REQUESTS SHE BE DISCHARGED, SPOKE WITH DR GUTIERREZ AND DISCHARGE ORDERS RECEIVED. REVIEWED DISCHARGE IONSTRUCTIONS WITH PATIENT AND PATIENT STATES SHE UNDERSTANDS THESE INSTRUCTIONS. PT DISCHARGED VIA WHEELCHAIR ACCOMPANIED BY FAMILY MEMBER
[2024-12-06] MEDS ORDERED: ClonazePAM 1 MG Tab PO SCH (21:00)
[2024-12-06] MEDS ORDERED: Pramipexole DI-HCL 0.125 MG Tab PO SCH (21:00)
== END 2024-12-06 15:35 | disposition home or self-care (01) | DRG 191 ==
LOC: ER 19:49 → MEDS 22:14 → ERHOLD 22:14 → MEDS 12-06 00:09
PROVIDERS: Emergency Medicine; Student in an Organized Health Care Education/Training Program; ADMIT Internal Medicine
DX: J44.0 Chronic obstructive pulmonary disease with (acute) lower respiratory infection (principal); J45.901 Unspecified asthma with (acute) exacerbation; J44.1 Chronic obstructive pulmonary disease with (acute) exacerbation; M79.7 Fibromyalgia; G89.4 Chronic pain syndrome; G25.81 Restless legs syndrome; F41.9 Anxiety disorder, unspecified; B19.20 Unspecified viral hepatitis C without hepatic coma; Z87.891 Personal history of nicotine dependence; Z87.442 Personal history of urinary calculi; Z79.899 Other long term (current) drug therapy
CPT/HCPCS: 0241U; 36415; 71046; 80048; 80053; 83735; 83880; 85025; 87070; 87205; 94640; 94644; 94664; 94760; 96365; A9270; J0456; J0696; J1650; J2405; J2919; J3475; J3480; J7050; J7060; J7512